=== PATIENT | male | born 1990 | race Caucasian/White ===

== ENCOUNTER 2016-09-18 18:49 | Emergency (ER) | payer OTHER ==
[2016-09-18 19:19] VITALS: RESP 18
--- NOTE | 2016-09-18 20:03 | ED ---
Psych HPI - General Chief Complaint: Psychiatric Symptoms Stated Complaint: Mental health Time Seen by Provider: 09/18/16 19:44 Source: patient, RN notes reviewed Mode of arrival: ambulatory - History of Present Illness Initial Comments: 26 yo male presents to the ER with cc of having thoughts about suicide. Patient states that he just does not feel that he knows why he is doing this he feels as if he sits going through the motions of light. Patient states that he just doesn't know with going on. Patient states he has thoughts of hurting himself doesn't have a specific plan. Patient states he did not take any medications today. Patient states that he just does not know what is going on. Patient is very difficult historian. Patient is not forthcoming with his history.Patient denies any recent fever, chills, shortness of breath, chest pain , back pain, abdominal pain, nausea vomiting, numbness or tingling, dysuria or hematuria, constipation or diarrhea, headaches or visual changes, or any other current symptoms. - Related Data Home Medications Medication Instructions Recorded Confirmed Aspirin 325 - 650 mg PO QID PRN 09/18/16 09/18/16 Allergies Allergy/AdvReac Type Severity Reaction Status Date / Time cefixime [From Suprax] Allergy Unknown Verified 09/18/16 19:15 Childhood codeine Allergy Unknown Verified 09/18/16 20:10 Childhood Review of Systems ROS Statement: Those systems with pertinent positive or pertinent negative responses have been documented in the HPI. ROS Other: All systems not noted in ROS Statement are negative. Past Medical History Past Medical History: No Reported History History of Any Multi-Drug Resistant Organisms: None Reported Past Surgical History: Hernia Repair Past Psychological History: Depression Smoking Status: Current every day smoker Past Alcohol Use History: Occasional Past Drug Use History: Marijuana General Exam Limitations: no limitations General appearance: alert, in no apparent distress ENT exam: Present: normal exam, mucous membranes moist Neck exam: Present: normal inspection. Absent: tenderness, meningismus, lymphadenopathy Respiratory exam: Present: normal lung sounds bilaterally. Absent: respiratory distress, wheezes, rales, rhonchi, stridor Cardiovascular Exam: Present: regular rate, normal rhythm, normal heart sounds. Absent: systolic murmur, diastolic murmur, rubs, gallop, clicks Neurological exam: Present: alert, oriented X3 Psychiatric exam: Present: depressed Skin exam: Present: warm, dry, intact, normal color. Absent: rash Course Vital Signs 09/18/16 19:17 Temperature 99.1 F Pulse Rate 83 Respiratory 18 Rate Blood Pressure 140/104 O2 Sat by Pulse 98 Oximetry Medical Decision Making - Medical Decision Making 26 yo female presents to the emergency department seeking psychiatric evaluation. At this time the patient does not appear to be suffering from any acute medical emergencies. Patient is cleared to be evaluated by psychiatry. Patient continues to deny any suicidal plan and states he is not suicidal just overwhelmed. Patient was evaluated by psych and is cleared to go home. He does contracted to safety and all questions have been answered. Patient will be discharged home. - Lab Data Lab Results 09/18/16 Range/Units 20:07 Urine Opiates Screen Not Detected (NotDetected) Ur Oxycodone Screen Not Detected (NotDetected) Urine Methadone Screen Not Detected (NotDetected) Ur Propoxyphene Screen Not Detected (NotDetected) Ur Barbiturates Screen Not Detected (NotDetected) U Tricyclic Antidepress Not Detected (NotDetected) Ur Phencyclidine Scrn Not Detected (NotDetected) Ur Amphetamines Screen Not Detected (NotDetected) U Methamphetamines Scrn Not Detected (NotDetected) U Benzodiazepines Scrn Not Detected (NotDetected) Urine Cocaine Screen Not Detected (NotDetected) U Marijuana (THC) Screen Detected H (NotDetected) - Radiology Data Radiology results: report reviewed, image reviewed Disposition Clinical Impression: Acute anxiety Disposition: HOME SELF-CARE Condition: Stable Instructions: Anxiety (ED) Additional Instructions: please use medications as prescribed. Please follow up as discussed. IF you develop any suicidal or homicidal ideation please return to the ER. Referrals: Rupert John MD [STAFF PHYSICIAN] - 1-2 days Time of Disposition: 21:25
[2016-09-18 21:30] VITALS: BP 142/80; PULSE 63; TEMP 100
[2016-09-18] MEDS: LORazepam 1 MG TAB PO STA (21:44)
== END 2016-09-18 21:46 | disposition home or self-care (01) ==
LOC: EC 18:49
DX: F41.9 Anxiety disorder, unspecified (principal); F32.9 Major depressive disorder, single episode, unspecified; F17.200 Nicotine dependence, unspecified, uncomplicated; Z88.1 Allergy status to other antibiotic agents; Z88.5 Allergy status to narcotic agent
CPT/HCPCS: 80306; 99284

== ENCOUNTER 2016-11-29 15:13 | Emergency (ER) | payer OTHER ==
[2016-11-29 15:27] VITALS: RESP 18
[2016-11-29] MEDS ORDERED: SODIUM CHLORIDE 0.9% 1,000 ML IV STA (15:43)
[2016-11-29] MEDS ORDERED: KETOROLAC 30 MG/ML 1 ML VIAL IVP STA (15:43)
--- NOTE | 2016-11-29 15:48 | ED ---
Abdominal Pain HPI - General Chief Complaint: Abdominal Pain Stated Complaint: Flank Pain Time Seen by Provider: 11/29/16 15:32 Source: patient, family, RN notes reviewed, old records reviewed Mode of arrival: ambulatory Limitations: no limitations - History of Present Illness Initial Comments: This is a 26-year-old male with a benign history who had the onset last evening of left-sided CVA flank pain he states is dull achy sharp waxes and wanes anywhere from 8/10-2/10. He has nausea and some diarrhea. He was seen at a local outpatient clinic and found have some blood in his urine. He was sent here for further evaluation. Patient has no complaints of fevers chills sweats. No family history of kidney stones. Patient's had no prior abdominal surgeries. Patient is a smoker we did discuss risks and benefits of stopping smoking this lasted 3.1 minutes. Patient does state he does drink alcohol maybe once every 2 weeks. MD Complaint: flank pain - Related Data Previous Rx's Medication Instructions Recorded Amoxicillin/Potassium Clav 1 tab PO Q12HR #20 tab 11/29/16 [Augmentin 875-125 Tablet] Hydrocodone/Acetaminophen [[place] 1 each PO Q6HR PRN #20 tab 11/29/16 5-325] Ibuprofen 800 mg PO Q6HR PRN #20 tablet 11/29/16 Allergies Allergy/AdvReac Type Severity Reaction Status Date / Time cefixime [From Suprax] Allergy Unknown Verified 11/29/16 15:27 Childhood codeine Allergy Unknown Verified 11/29/16 15:27 Childhood Review of Systems ROS Statement: Those systems with pertinent positive or pertinent negative responses have been documented in the HPI. ROS Other: All systems not noted in ROS Statement are negative. Past Medical History Past Medical History: No Reported History History of Any Multi-Drug Resistant Organisms: None Reported Past Surgical History: Hernia Repair Past Psychological History: Depression Smoking Status: Current every day smoker Past Alcohol Use History: Occasional Past Drug Use History: Marijuana General Exam - General Exam Comments Initial Comments: This is a well-developed well-nourished awake alert oriented 3 male Limitations: no limitations General appearance: alert, in no apparent distress Head exam: Present: atraumatic, normocephalic, normal inspection Eye exam: Present: normal appearance, PERRL, EOMI. Absent: scleral icterus, conjunctival injection, periorbital swelling ENT exam: Present: normal exam, mucous membranes moist Neck exam: Present: normal inspection. Absent: tenderness, meningismus, lymphadenopathy Respiratory exam: Present: normal lung sounds bilaterally. Absent: respiratory distress, wheezes, rales, rhonchi, stridor Cardiovascular Exam: Present: regular rate, normal rhythm, normal heart sounds. Absent: systolic murmur, diastolic murmur, rubs, gallop, clicks GI/Abdominal exam: Present: soft, normal bowel sounds. Absent: distended, tenderness, guarding, rebound, rigid Extremities exam: Present: normal inspection, full ROM, normal capillary refill. Absent: tenderness, pedal edema, joint swelling, calf tenderness Back exam: Present: normal inspection, full ROM, CVA tenderness (L) Neurological exam: Present: alert, oriented X3, CN II-XII intact Psychiatric exam: Present: normal affect, normal mood Skin exam: Present: warm, dry, intact, normal color. Absent: rash Course Vital Signs 11/29/16 15:25 Temperature 99.2 F Pulse Rate 72 Respiratory 18 Rate Blood Pressure 122/80 O2 Sat by Pulse 100 Oximetry Medical Decision Making - Medical Decision Making Patient is feeling much improved I did a long discussion with him and his family regarding findings patient does not want to be admitted to the hospital. For further try outpatient treatment. Patient be placed on Augmentin he has taken amoxicillin without any trouble the past he was welcome back at any time he said follow-up with Dr. Hurtado and return when necessary - Lab Data Result diagrams: 11/29/16 15:44 11/29/16 15:44 Lab Results 11/29/16 11/29/16 11/29/16 Range/Units 15:44 15:44 16:43 WBC 22.1 H (3.8-10.6) k/uL RBC 5.18 (4.30-5.90) m/uL Hgb 16.2 (13.0-17.5) gm/dL Hct 45.1 (39.0-53.0) % MCV 87.0 (80.0-100.0) fL MCH 31.2 (25.0-35.0) pg MCHC 35.9 (31.0-37.0) g/dL RDW 13.0 (11.5-15.5) % Plt Count 234 (150-450) k/uL Neutrophils % 79 % Lymphocytes % 12 % Monocytes % 7 % Eosinophils % 1 % Basophils % 0 % Neutrophils # 17.4 H (1.3-7.7) k/uL Lymphocytes # 2.7 (1.0-4.8) k/uL Monocytes # 1.5 H (0-1.0) k/uL Eosinophils # 0.1 (0-0.7) k/uL Basophils # 0.1 (0-0.2) k/uL Sodium 141 (137-145) mmol/L Potassium 3.8 (3.5-5.1) mmol/L Chloride 103 (98-107) mmol/L Carbon Dioxide 26 (22-30) mmol/L Anion Gap 12 mmol/L BUN 16 (9-20) mg/dL Creatinine 0.97 (0.66-1.25) mg/dL Est GFR (MDRD) Af Amer >60 (>60 ml/min/1.73 sqM) Est GFR (MDRD) Non-Af >60 (>60 ml/min/1.73 sqM) Glucose 84 (74-99) mg/dL Calcium 9.8 (8.4-10.2) mg/dL Total Bilirubin 0.8 (0.2-1.3) mg/dL AST 18 (17-59) U/L ALT 40 (21-72) U/L Alkaline Phosphatase 72 (38-126) U/L Total Protein 7.9 (6.3-8.2) g/dL Albumin 4.9 (3.5-5.0) g/dL Amylase 53 (30-110) U/L Lipase 64 (23-300) U/L Urine Color Yellow Urine Appearance Clear (Clear) Urine pH 8.5 H (5.0-8.0) Ur Specific [place] 1.030 (1.001-1.035) Urine Protein 1+ H (Negative) Urine Glucose (UA) Negative (Negative) Urine Ketones 2+ H (Negative) Urine Blood Negative (Negative) Urine Nitrite Negative (Negative) Urine Bilirubin Negative (Negative) Urine Urobilinogen <2.0 (<2.0) mg/dL Ur Leukocyte Esterase Negative (Negative) Urine WBC 2 (0-5) /hpf Amorphous Sediment Occasional H (None) /hpf Urine Mucus Many H (None) /hpf - Radiology Data Radiology results: report reviewed (I did review the imaging and reports x-rays are nondiagnostic CAT scan shows evidence of colitis possibly diverticulitis. No evidence of any perforation.), image reviewed Disposition Clinical Impression: Diverticulitis, Colitis Disposition: HOME SELF-CARE Condition: Stable Instructions: Diverticulitis (ED), Diverticulitis Diet (ED) Prescriptions: Amoxicillin/Potassium Clav [Augmentin 875-125 Tablet] 1 tab PO Q12HR #20 tab Hydrocodone/Acetaminophen [[place] 5-325] 1 each PO Q6HR PRN #20 tab PRN Reason: Pain Ibuprofen 800 mg PO Q6HR PRN #20 tablet PRN Reason: Pain Referrals: Paul Hurtado MD [Primary Care Provider] - 1-2 days Decision Time: 18:00
[2016-11-29 15:58] LABS: Basophils # (A) 0.1 k/uL (0-0.2); Basophils % (A) 0 %; CH 30.6; CHCM 35.3; Eosinophils # (A) 0.1 k/uL (0-0.7); Eosinophils % (A) 1 %; HCT 45.1 % (39.0-53.0); HDW 2.63; HGB 16.2 gm/dL (13.0-17.5); Luc # (Auto) 0.34; Luc % (Auto) 2; Lymphocytes # (A) 2.7 k/uL (1.0-4.8); Lymphocytes % (A) 12 %; MCH 31.2 pg (25.0-35.0); MCHC 35.9 g/dL (31.0-37.0); Monocytes # (A) 1.5 k/uL (0-1.0); Monocytes % (A) 7 %; Neutrophils # (A) 17.4 k/uL (1.3-7.7); Neutrophils % (A) 79 %; RBC 5.18 m/uL (4.30-5.90); WBC 22.1 k/uL (3.8-10.6); WBC (Perox) 22.06
[2016-11-29 16:09] LABS: ALT 40 U/L (21-72); AST 18 U/L (17-59); Alkaline Phosphatase 72 U/L (38-126); Amylase 53 U/L (30-110); Anion Gap 12 mmol/L; Blood Urea Nitrogen 16 mg/dL (9-20); Calcium 9.8 mg/dL (8.4-10.2); Carbon Dioxide 26 mmol/L (22-30); Chloride 103 mmol/L (98-107); Glucose 84 mg/dL (74-99); Non-African American GFR(MDRD) >60 (>60 ml/min/1.73 sqM); Potassium 3.8 mmol/L (3.5-5.1); Sodium 141 mmol/L (137-145); Total Bilirubin 0.8 mg/dL (0.2-1.3); Total Protein 7.9 g/dL (6.3-8.2)
--- NOTE | 2016-11-29 16:11 | XR ---
EXAMINATION TYPE: XR chest 2V DATE OF EXAM: 11/29/2016 COMPARISON: NONE HISTORY: Left-sided chest and abdominal pain TECHNIQUE: Frontal and lateral views of the chest are obtained. FINDINGS: There is no focal air space opacity, pleural effusion, or pneumothorax seen. The cardiac silhouette size is within normal limits. The osseous structures are intact. IMPRESSION: No acute cardiopulmonary process.
--- NOTE | 2016-11-29 16:12 | XR ---
EXAMINATION TYPE: XR KUB DATE OF EXAM: 11/29/2016 4:03 PM CLINICAL HISTORY: Left-sided chest and abdominal TECHNIQUE: 2 upright KUB images of the abdomen are obtained. COMPARISON: None. FINDINGS: Scattered gas is seen in non-distended small bowel loops. There may be some irregular wall thickening and left-sided small bowel loops. Gas and fecal material is seen in non-distended colon. T here is no visceromegaly, pneumoperitoneum, or abnormal calcification appreciated. The lung bases are clear and the osseous structures are intact. IMPRESSION: Overall nonobstructive bowel gas pattern. Correlate for left-sided enteritis.
[2016-11-29 17:08] LABS: Amorphous Sediment,Urine Occasional /hpf; Appearance,Urine Clear (Clear); Bilirubin,Urine Negative (Negative); Glucose,Urine (UA) Negative (Negative); Ketones,Urine 2+ (Negative); Leukocyte Esterase,Urine Negative (Negative); Mucus,Urine Many /hpf; Nitrite,Urine Negative (Negative); PH, Urine 8.5 (5.0-8.0); Particle Count 7508; Protein,Urine 1+ (Negative); UA Billing (MACRO vs. MICRO) MICRO; Urobilinogen,Urine <2.0 mg/dL (<2.0); WBC,Urine 2 /hpf (0-5)
--- NOTE | 2016-11-29 17:39 | CT ---
EXAMINATION TYPE: CT abdomen pelvis wo con DATE OF EXAM: 11/29/2016 HISTORY: Patient complains of LUQ pain. CT DLP: 998 mGycm. Automated Exposure Control for Dose Reduction was Utilized. TECHNIQUE: CT scan of the abdomen and pelvis is performed without oral or IV contrast. COMPARISON: NONE FINDINGS: Within the limitations of a non-contrast study, the following observations are made. LUNG BASES: No significant abnormality is appreciated. LIVER/GB: Liver is diffusely low dense relative to spleen consistent with diffuse fatty infiltration. PANCREAS: No significant abnormality is seen. SPLEEN: No significant abnormality is seen. ADRENALS: No significant abnormality is seen. KIDNEYS: No renal stones or hydronephrosis is evident bilaterally. There are prominent right-sided ca lcified phleboliths. BOWEL: No suspicious small or large bowel dilatation. There are a few scattered colonic diverticula. Involving the left colon there is moderate to severe wall thickening with mild surrounding the fat st randing and ill-defined fluid over roughly 10 to 15 cm segment. Finding is consistent with focal coli tis at this level seen best near coronal image 41. No well-formed fluid collection or abscess is seen . No pneumoperitoneum is present. Terminal ileum is felt within normal limits. Normal-appearing appen mariaelena is seen at base of cecum. GENITAL ORGANS: No gross abnormality seen. LYMPH NODES: No greater than 1cm abdominal or pelvic lymph nodes are appreciated. OSSEOUS STRUCTURES: Spine is straightened on sagittal images. OTHER: No significant additional abnormality is seen. IMPRESSION: CT findings are consistent with a mild to moderate acute colitis involving the left colon , some scattered diverticula are present suggesting etiology may be related to acute diverticulitis, other inflammatory or infectious etiologies are not excluded. Clinical correlation advised.
[2016-11-29] MEDS ORDERED: AMOXIC-POT CLAV 875-125MG 1 EACH TAB PO STA (18:12)
[2016-11-29 18:25] VITALS: BP 117/65; PULSE 85; TEMP 98.7
== END 2016-11-29 18:26 | disposition home or self-care (01) ==
LOC: EC 15:13
DX: K57.92 Diverticulitis of intestine, part unspecified, without perforation or abscess without bleeding (principal); K52.9 Noninfective gastroenteritis and colitis, unspecified; F17.200 Nicotine dependence, unspecified, uncomplicated; Z98.890 Other specified postprocedural states; Z88.1 Allergy status to other antibiotic agents; Z88.5 Allergy status to narcotic agent
CPT/HCPCS: 36415; 80053; 82150; 83690; 85025; 81001; 71020; 74000; 74176; 99285; 96374; 96361 ×2; J1885

== ENCOUNTER 2022-08-31 17:05 | Emergency (ER) | payer BC ==
[2022-08-31 17:09] VITALS: BP 167/96; PULSE 87; RESP 20; TEMP 98.1
--- NOTE | 2022-08-31 17:31 | ED ---
General Adult HPI - General Chief complaint: Extremity Injury, Upper Stated complaint: left arm injury Time Seen by Provider: 08/31/22 17:20 Source: patient, RN notes reviewed Mode of arrival: ambulatory Limitations: no limitations - History of Present Illness Initial comments: 32-year-old male presents emergency department chief complaint of left elbow and wrist pain. Patient states that he was in-line skating when he fell and landed on his left wrist. He is reporting pain at the elbow now. He reports decreased range of motion at the elbow. He reports minimal pain at the wrist. He states he does not want anything for pain at this time. Denies any other injury. Denies numbness, tingling in the hand or forearm. States he is otherwise healt hy, the only medication he takes is Vyvanse. - Related Data Previous Rx's Medication Instructions Recorded Amoxicillin/Potassium Clav 1 tab PO Q12HR #20 tab 11/29/16 [Augmentin 875-125 Tablet] Hydrocodone/Acetaminophen [[place] 1 each PO Q6HR PRN #20 tab 11/29/16 5-325] Ibuprofen 800 mg PO Q6HR PRN #20 tablet 11/29/16 Allergies Allergy/AdvReac Type Severity Reaction Status Date / Time cefixime [From Suprax] Allergy Unknown Verified 08/31/22 17:09 Childhood codeine Allergy Unknown Verified 08/31/22 17:09 Childhood Review of Systems ROS Statement: Those systems with pertinent positive or pertinent negative responses have been documented in the HPI. ROS Other: All systems not noted in ROS Statement are negative. Past Medical History Past Medical History: No Reported History History of Any Multi-Drug Resistant Organisms: None Reported Past Surgical History: Hernia Repair Past Psychological History: Depression Smoking Status: Current every day smoker Past Alcohol Use History: Occasional Past Drug Use History: Marijuana General Exam Limitations: no limitations General appearance: alert, in no apparent distress Head exam: Present: atraumatic, normocephalic, normal inspection Eye exam: Present: normal appearance, PERRL, EOMI. Absent: scleral icterus, conjunctival injection, periorbital swelling ENT exam: Present: normal exam, mucous membranes moist Neck exam: Present: normal inspection. Absent: tenderness, meningismus, lymphadenopathy Respiratory exam: Present: normal lung sounds bilaterally. Absent: respiratory distress, wheezes, rales, rhonchi, stridor Cardiovascular Exam: Present: regular rate, normal rhythm, normal heart sounds. Absent: systolic murmur, diastolic murmur, rubs, gallop, clicks Extremities exam: Present: tenderness (Tenderness palpation over the radial head), normal capillary refill, other (Decreased range of motion of the left elbow, full range of motion at the left wrist, fingers, shoulder; radial pulses 2+ bilaterally, normal capillary refill patient was placed in a posterior long- arm splint and neurovascular status was reassessed with 2+ radial pulses and normal sensation) Neurological exam: Present: alert, oriented X3 Psychiatric exam: Present: normal affect, normal mood Skin exam: Present: warm, dry, intact, normal color. Absent: rash Course Vital Signs 08/31/22 17:07 Temperature 98.1 F Pulse Rate 87 Respiratory 20 Rate Blood Pressure 167/96 O2 Sat by Pulse 98 Oximetry Procedures - Orthopedic Splinting/Casting Injury #1 Side: left Upper Extremity Injury Location: elbow (Posterior long-arm) Upper Extremity Immobilizer: posterior splint Additional Comments: Neurovascular status was assessed following placement of splint Medical Decision Making - Medical Decision Making Was pt. sent in by a medical professional or institution (Dr. PA, FIRE FIGHTER, urgent care, hospital, or alf...) When possible be specific @ -No Did you speak to anyone other than the patient for history (EMS, parent, family, police, friend...)? What history was obtained from this source @ -No Did you review nursing and triage notes (agree or disagree)? Why? @ -I reviewed and agree with nursing and triage notes Were old charts reviewed (outside hosp., previous admission, EMS record, old EKG, old radiological studies, urgent care reports/EKG's, alf records)? Report findings @ -No old charts were reviewed Differential Diagnosis (chest pain, altered mental status, abdominal pain women, abdominal pain men, vaginal bleeding, weakness, fever, dyspnea, syncope, headache, dizziness, GI bleed, back pain, seizure, CVA, palpatations, mental health, musculoskeletal)? @ -Differential Musculoskeletal Muscular strain, contusion, ligament sprain, fracture, arthritis, septic arthritis, bursitis, cellulitis, muscle spasm, nerve compression, DVT, arterial occlusion, herpes zoster, electrolyte abnormality, tumor.... This is not meant to be in all inclusive list EKG interpreted by me (3pts min.). @ -None X-rays interpreted by me (1pt min.). @ -X-ray of the left elbow showed minimally displaced radial head fracture, x- ray of the left wrist show no acute fracture CT interpreted by me (1pt min.). @ -None done U/S interpreted by me (1pt. min.). @ -None done What testing was considered but not performed or refused? (CT, X-rays, U/S, labs)? Why? @ -None What meds were considered but not given or refused? Why? @ -Pain medication was considered but the patient did not want any when asked Did you discuss the management of the patient with other professionals (professionals i.e. , PA, FIRE FIGHTER, lab, RT, psych nurse, director social welfare, heel slugger, teacher, air support control officer, transplant case manager)? Give summary @ -No Was smoking cessation discussed for >3mins.? @ -No Was critical care preformed (if so, how long)? @ -No Were there social determinants of health that impacted care today? How? (Homelessness, low income, unemployed, alcoholism, drug addiction, transportation, low edu. Level, literacy, decrease access to med. care, [place] [facility], rehab)? @ -No Was there de-escalation of care discussed even if they declined (Discuss DNR or withdrawal of care, Hospice)? DNR status @ -No What co-morbidities impacted this encounter? (DM, HTN, Smoking, COPD, CAD, Cancer, CVA, ARF, Chemo, Hep., AIDS, mental health diagnosis, sleep apnea, morbid obesity)? @ -None Was patient admitted / discharged? Hospital course, mention meds given and route, prescriptions, significant lab abnormalities, going to OR and other pertinent info. @ -Discharged. Patient presented to emergency department with chief complaint of left elbow pain following a FOOSH injury while skating. Patient reports decreased range of motion at the left elbow pain at the proximal lateral aspect. Radial pulses 2+, normal sensation of bilateral upper extremities. X-ray of the left elbow showed a minimally displaced radial head fracture, x-ray of the left wrist showed no acute fracture. Patient was placed in a posterior long-arm splint and given orthopedic follow-up. Neurovascular status was reevaluated following splint placement. Patient did not want pain medication for home for home or while in the emergency department. Patient was advised to alternate Tylenol and Motrin as needed for pain and follow-up with orthopedics in the next 1-2 days. Patient discharged in stable condition. Case discussed with my attending, Dr. Chang Undiagnosed new problem with uncertain prognosis? @ -No Drug Therapy requiring intensive monitoring for toxicity (Heparin, Nitro, Insulin, Cardizem)? @ -No Were any procedures done? @ -No Diagnosis/symptom? @ -Left Radial head fracture Acute, or Chronic, or Acute on Chronic? @ -Acute Uncomplicated (without systemic symptoms) or Complicated (systemic symptoms)? @ -Uncomplicated Side effects of treatment? @ -No Exacerbation, Progression, or Severe Exacerbation? @ -No Poses a threat to life or bodily function? How? (Chest pain, [place], MA, pneumonia, PE, COPD, DKA, ARF, appy, cholecystitis, CVA, Diverticulitis, Homicidal, Suicidal, threat to staff... and all critical care pts) @ -No Disposition Clinical Impression: Radial head fracture Disposition: HOME SELF-CARE Condition: Stable Instructions (If sedation given, give patient instructions): Elbow Fracture (ED) Additional Instructions: Please follow-up with orthopedics in the next 1-2 days. Return to the emergency department for new or worsening symptoms Is patient prescribed a controlled substance at d/c from ED?: No Referrals: Paul Hurtado MD [STAFF PHYSICIAN] - 1-2 days Yan Ritter DO [Doctor of Osteopathic Medicine] - 1-2 days Time of Disposition: 18:52
--- NOTE | 2022-08-31 17:46 | XR ---
EXAMINATION TYPE: XR wrist complete LT DATE OF EXAM: 08/31/2022 CLINICAL HISTORY: pain TECHNIQUE: Frontal, lateral and oblique images of the left wrist are obtained. COMPARISON: None. FINDINGS: There is no acute fracture/dislocation evident. Small ossific density adjacent to the ulna r styloid process may reflect unfused ossicle. Correlate clinically point tenderness. The joint space s appear within normal limits. The overlying soft tissue appears unremarkable. IMPRESSION: There is no acute fracture or dislocation seen. ICD 10 NO FRACTURE, INITIAL EVALUATION
--- NOTE | 2022-08-31 17:47 | XR ---
EXAMINATION TYPE: XR elbow complete LT DATE OF EXAM: 08/31/2022 CLINICAL HISTORY: pain TECHNIQUE: Frontal, lateral and oblique images of the left elbow are obtained. COMPARISON: None. FINDINGS: Mildly displaced radial head fracture. Pathologic anterior and posterior fat pads noted. No additional fracture seen at this time. IMPRESSION: Mildly displaced radial head fracture.
== END 2022-08-31 19:14 | disposition home or self-care (01) ==
LOC: EC 17:05
DX: S52.121A Displaced fracture of head of right radius, initial encounter for closed fracture (principal); F17.200 Nicotine dependence, unspecified, uncomplicated; F12.90 Cannabis use, unspecified, uncomplicated; Z86.59 Personal history of other mental and behavioral disorders; Z88.1 Allergy status to other antibiotic agents; W18.30XA Fall on same level, unspecified, initial encounter; Y93.51 Activity, roller skating (inline) and skateboarding
CPT/HCPCS: 29105; 99283